=== PATIENT | male | born 1980 | race Asian ===

== ENCOUNTER 2021-10-01 06:11 | Emergency (ER) | payer MEDICAID ==
[~2021-10-01] VITALS: Ht 185.4 cm; Wt 65.8 kg
--- NOTE | 2021-10-01 06:21 | NUR ---
38 YR OLD MALE AOX4 WITH UNSTEADY GAIT, WITHCOMPLAINT OF MARIJUANA PILL CONSUMPTION. PT STATES "IM SO SICK, DYING!" PT REPORTS CONSUMING HALF OF A THC PILL GIVEN TO HIM BY A FRIEND FOR ASSISTANCE WITH SLEEP. PT DENIES ANY HEALTH CONDITIONS. PT ACCOMPANIED BY GIRLFRIEND. MD CRESPO AT THE BEDSIDE
[2021-10-01 06:22] VITALS: BP_SYST 117
[2021-10-01] MEDS ORDERED: HALOPERIDOL LACTATE 5 MG/ML VIAL IM ONE (06:30)
[2021-10-01 06:48] LABS: BASOPHILS % (AUTO) 0.5 % (0.0-2.0); EOSINOPHILS # (AUTO) 0.1 K/uL (0.0-0.4); EOSINOPHILS % (AUTO) 0.9 % (0.0-4.0); HEMATOCRIT 43.9 % (36-54); HEMOGLOBIN 15.2 g/dL (14.0-18.0); LYMPHOCYTES # (AUTO) 2.1 K/uL (1.0-5.5); LYMPHOCYTES % (AUTO) 38.7 % (20.5-51.5); MEAN CORPUSCULAR HEMOGLOBIN 30 pg (27-31); MEAN CORPUSCULAR HGB CONC 35 % (32-36); MEAN CORPUSCULAR VOLUME 86 fL (79.0-98.0); MONOCYTES # (AUTO) 0.3 K/uL (0.0-1.0); NEUTROPHILS % (AUTO) 54.9 % (40.0-70.0); PLATELET COUNT (AUTO) 211 K/uL (130-430); RED BLOOD CELL COUNT(AUTO) 5.11 MIL/uL (4.2-6.2); RED CELL DISTRIBUTION WIDTH 12.3 % (9.0-15.0); WHITE BLOOD COUNT (AUTO) 5.4 K/uL (4.8-10.8)
[2021-10-01 07:23] LABS: ANION GAP 10 (5-15); CHLORIDE 103 mmol/L (98-107); CREATININE 1.17 mg/dL (0.55-1.30); GLUCOSE 140 mg/dL (70-99); POTASSIUM 3.1 mmol/L (3.5-5.1); SODIUM SERUM 138 mmol/L (136-145); UREA NITROGEN, BLOOD 18 mg/dL (8-21)
[2021-10-01 07:34] LABS: GFR AFRICAN AMERICAN 90 mL/min (>90)
[2021-10-01 07:35] LABS: ALANINE AMINOTRANSFERASE 36 U/L (12-78); ALBUMIN 3.8 g/dL (3.4-4.8); AMYLASE 52 U/L (0-100); ASPARTATE AMINOTRANSFERASE 21 U/L (10-37); LIPASE 227 U/L (73-393); TOTAL BILIRUBIN 0.6 mg/dL (0.0-1.0)
[2021-10-01 07:40] LABS: C-REACTIVE PROTEIN QUANT < 0.2 mg/dL (0-0.5)
[2021-10-01 07:44] LABS: BILIRUBIN,URINE NEGATIVE (NEGATIVE); BLOOD, URINE NEGATIVE (NEGATIVE); CLARITY/URINE CLEAR (CLEAR); COLOR,URINE YELLOW (YELLOW); GLUCOSE,URINE NEGATIVE (NEGATIVE); KETONES,URINE 2+ (NEGATIVE); LEUKOCYTE ESTERASE ,URINE NEGATIVE (NEGATIVE); NITRITE, URINE NEGATIVE (NEGATIVE); PROTEIN URINE NEGATIVE (NEGATIVE); UROBILINOGEN,URINE 0.2 (0.2-1.0)
--- NOTE | 2021-10-01 07:57 | NUR ---
PT AWAKE, C/O DIZZINESS, GF AT BEDSIDE. PLAN OF CARE UPDATED, VERBALIZED UNDERSTADING. DR CRESPO INFORMED.
[2021-10-01] MEDS ORDERED: METO-290 PO (08:02)
[2021-10-01] MEDS ORDERED: OMEP20CA15 PO (08:02)
[2021-10-01 08:24] VITALS: BP_SYST 105
--- NOTE | 2021-10-01 08:25 | NUR ---
Patient given written and verbal discharge instructions and verbalizes understanding. ER MD discussed with patient the results and treatment provided. Patient in stable condition. ID arm band removed. Rx of REGLAN, OMEPRAZOLE given. Patient educated on pain management and to follow up with PMD. Pain Scale 0/10. Opportunity for questions provided and answered. Medication side effect fact sheet provided.
== END 2021-10-01 08:25 | disposition home or self-care (01) ==
LOC: SED 06:11 → EDBD 06:11 → SED 08:25
DX: K31.84 Gastroparesis (principal); R10.13 Epigastric pain; R11.0 Nausea
CPT/HCPCS: 36415; 74176; 76376; 80053; 81003; 82150; 83605; 83690; 84484; 85025; 86140; 96372; 99284; J1630